=== PATIENT | female | born 1995 | race Caucasian/White ===

== ENCOUNTER 2017-05-26 12:25 | Emergency (ER) | payer OTHER ==
[~2017-05-26] VITALS: Ht 167.6 cm; Wt 68.6 kg
[~2017-05-26 12:25] MED LIST: NAPR500T PO
[2017-05-26 12:33] VITALS: BP 149/95
[2017-05-26] MEDS ORDERED: LORazepam 1MG TABLET PO ONE (13:30)
[2017-05-26] MEDS ORDERED: LORazepam 1MG TABLET ONE (13:41)
[2017-05-26 14:16] LABS: HEMOGLOBIN 13.7 g/dL (11.7-16.4); WHITE BLOOD COUNT 8.7 x10^3/uL (3.4-10)
[2017-05-26 14:27] LABS: BLOOD UREA NITROGEN 14 mg/dL (7-18)
[2017-05-26 14:34] LABS: IS PT STATUS REG ER OR PRE ER? YES
== END 2017-05-26 14:49 | disposition home or self-care (01) ==
LOC: ED 13:10
DX: M94.0 Chondrocostal junction syndrome [Tietze] (principal); F41.9 Anxiety disorder, unspecified
CPT/HCPCS: 36415; 71020; 80048; 82040; 84484; 85025; 93005; 99285

== ENCOUNTER 2017-06-28 14:08 | Emergency (ER) | payer OTHER ==
[~2017-06-28] VITALS: Ht 167.6 cm; Wt 69.6 kg
[2017-06-28] MEDS ORDERED: SODIUM CHLORIDE 0.9% 1,000 ML IV ONE (14:33)
[2017-06-28] MEDS ORDERED: SODIUM CHLORIDE 0.9% 1,000ML IVBOLUS ONE (15:00)
[2017-06-28] MEDS ORDERED: DIPHENHYDRAMINE 50 MG/ML, 1ML IVPush ONE (15:00)
[2017-06-28] MEDS ORDERED: KETOROLAC 30 MG/1 ML IVPush ONE (15:00)
[2017-06-28] MEDS ORDERED: METOCLOPRAMIDE 5 MG/ML, 2ML IVPush ONE (15:00)
[2017-06-28] MEDS ORDERED: KETOROLAC 30 MG/1 ML ONE (15:31)
[2017-06-28] MEDS ORDERED: DIPHENHYDRAMINE 50 MG/ML, 1ML ONE (15:31)
[2017-06-28] MEDS ORDERED: METOCLOPRAMIDE 5 MG/ML, 2ML ONE (15:31)
[2017-06-28 17:24] VITALS: BP 100/54
== END 2017-06-28 17:53 | disposition home or self-care (01) ==
LOC: ED 16:22
DX: G44.219 Episodic tension-type headache, not intractable (principal); G43.909 Migraine, unspecified, not intractable, without status migrainosus
CPT/HCPCS: 70450; 96361; 96374; 96375; 99284; J1200; J1885; J2765; J7030

== ENCOUNTER 2017-12-13 15:16 | Emergency (ER) | payer OTHER ==
[~2017-12-13] VITALS: Ht 167.6 cm; Wt 74.3 kg
[~2017-12-13 15:16] MED LIST changes: +NAPR-856 PO; -NAPR500T PO
[2017-12-13 15:19] VITALS: BP 153/91
[2017-12-13] MEDS ORDERED: IBUPROFEN 200 MG TABLET ONE (15:57)
[2017-12-13] MEDS ORDERED: IBUPROFEN 200 MG TABLET PO ONE (16:00)
[2017-12-13] MEDS ORDERED: TOPI100T24 PO (16:00)
== END 2017-12-13 16:19 | disposition home or self-care (01) ==
LOC: ED 16:00
DX: S83.8X1A Sprain of other specified parts of right knee, initial encounter (principal); F41.9 Anxiety disorder, unspecified; G43.909 Migraine, unspecified, not intractable, without status migrainosus
CPT/HCPCS: 99284